=== PATIENT | male | born 1980 | race Two or more races ===

== ENCOUNTER 2019-10-28 09:03 | Emergency (ER) | payer SELFPAY ==
[~2019-10-28] VITALS: Ht 185.4 cm; Wt 77.1 kg
[2019-10-28 09:34] VITALS: BP 143/86
== END 2019-10-28 09:37 | disposition home or self-care (01) ==
LOC: EDBD 09:03 → ER 09:03
DX: F11.10 Opioid abuse, uncomplicated (principal); F19.10 Other psychoactive substance abuse, uncomplicated; F31.9 Bipolar disorder, unspecified; F17.210 Nicotine dependence, cigarettes, uncomplicated; Z59.0 Homelessness

== ENCOUNTER 2023-06-07 03:10 | Emergency (ER) | payer MEDICAID, OTHER ==
[~2023-06-07] VITALS: Ht 172.7 cm; Wt 97.4 kg
[2023-06-07 03:27] VITALS: BP 149/86; PULSE 99; RESP 18; O2SAT 98
== END 2023-06-07 03:38 | disposition left against medical advice (07) ==
LOC: EDUNIT# 03:10 → EDBD 03:10 → ER 03:10
DX: R45.851 Suicidal ideations (principal); Z53.21 Procedure and treatment not carried out due to patient leaving prior to being seen by health care provider

== ENCOUNTER 2023-06-07 04:23 | Emergency (ER) | payer MEDICAID ==
[~2023-06-07] VITALS: Ht 182.9 cm; Wt 79.5 kg
[2023-06-07 06:26] LABS: Basophils # (auto) 0.1 10 ^3/uL (0-0.2); Basophils % (auto) 0.8 % (0.0-2.0); Eosinophils # (auto) 0 10 ^3/uL (0-0.8); Eosinophils % (auto) 0.1 % (0.0-7.0); Hemoglobin 14.6 g/dL (13.5-17.5); Lymphocytes # (auto) 1.1 10 ^3/uL (0.4-5.4); Lymphocytes % (auto) 11.6 % (10.0-50.0); Mean Corpuscular Hemoglobin 32.3 pg (28.0-32.0); Mean Corpuscular Hgb Conc. 33.9 g/dL (32.0-36.0); Mean Corpuscular Volume 95.2 fL (80.0-100.0); Monocytes # (auto) 0.7 10 ^3/uL (0-1.3); Monocytes % (auto) 7.3 % (0.0-12.0); Neutrophils # (auto) 7.7 10 ^3/uL (1.6-8.6); Neutrophils % (auto) 80.2 % (37.0-80.0); Nucleated Red Blood Cells % 0.1 %; Red Blood Cells 4.52 10^6/uL (4.5-5.90); Red Cell Distribution Width 16.5 % (11.8-14.3); White Blood Cell 9.6 10^3/uL (4.4-10.8)
[2023-06-07 06:37] LABS: Chloride 105 mmol/L (98-107); Potassium 4.2 mmol/L (3.5-5.1); Sodium 138 mmol/L (136-145)
[2023-06-07 06:38] LABS: Anion Gap 7 (5-15); Calcium 9.5 mg/dL (8.5-10.1); Carbon Dioxide 26 mmol/L (20-30)
[2023-06-07 06:43] LABS: BUN/Creatinine Ratio 18.1 (10.0-20.0); Blood Urea Nitrogen 15 mg/dL (9-23); Glucose 81 mg/dL (74-106)
[2023-06-07 06:44] LABS: Blood Alcohol < 3.0 mg/dL (<10)
[2023-06-07 06:45] LABS: Acetaminophen < 2.0 UG/ML (10.0-20.0)
[2023-06-07 06:49] LABS: Salicylate < 3.0 mg/dL (2.8-20.0)
[2023-06-07] MEDS: LORazepam 0.5 MG TAB PO ONE (08:21)
[2023-06-07 08:33] LABS: Amphetamine Screen, Urine Pos (NEGATIVE); Barbiturate Scree,Urine Neg (NEGATIVE); Benzodiazephine Screen, Urine Neg (NEGATIVE); Cocaine Screen, Urine Neg (NEGATIVE)
[2023-06-07 08:34] LABS: Cannabinoid Screen, Urine Neg (NEGATIVE); Opiate Scree,Urine Neg (NEGATIVE); Phencyclidine Screen, Urine Neg (NEGATIVE)
[2023-06-07 19:55] VITALS: PULSE 111; RESP 14; O2SAT 98
[2023-06-07] MEDS: risperiDONE 1 MG TAB PO SCH (20:01)
[2023-06-07 20:14] VITALS: BP 149/79; PULSE 111; RESP 14; TEMP 97.8; O2SAT 98
== END 2023-06-07 22:15 | disposition left against medical advice (07) ==
LOC: ER 04:23
DX: R45.851 Suicidal ideations (principal); F14.90 Cocaine use, unspecified, uncomplicated; F15.10 Other stimulant abuse, uncomplicated; F32.9 Major depressive disorder, single episode, unspecified; F17.210 Nicotine dependence, cigarettes, uncomplicated; Z02.79 Encounter for issue of other medical certificate; Z59.00 Homelessness unspecified; Z79.899 Other long term (current) drug therapy
CPT/HCPCS: 36415; 80048; 80307; 80320; 80329; 85025

== ENCOUNTER 2024-02-03 16:21 | Emergency (ER) | payer MEDICAID ==
[~2024-02-03] VITALS: Ht 185.4 cm; Wt 71.5 kg
[2024-02-03 16:31] VITALS: BP 138/55; PULSE 123; RESP 16; O2SAT 99
--- NOTE | 2024-02-03 16:57 | ED.PDOC ---
Psychiatric HPI Comments 43y M who presents to the ED for chief complaint of mental health. Pt states he is here because he needs a refill of his Zoloft, Ativan and Vyvanse Pt states he also needs to talk to hospice social worker. Pt states he needs help but states he doesn't want to say any more cause it might get him into trouble and would like to just talk to hospice social worker and a refill of his medications. Pt has noted history of depression, bipolar disorder and TBI. Pt otherwise denies suicidal or homicidal ideations. Pt denies any auditory or visual hallucinations. Pt is homeless and has history of marijuana and methamphetamine abuse. Pt otherwise denies any other symptoms at this time. Chief Complaint: Mental Health Time Seen by MD: 16:54 Primary Care Provider: NONE Reviewed Notes: Medications, Allergies Information Source: Patient Mode of Arrival: Ambulatory Past Medical History PAST MEDICAL HISTORY: Depression, Schizophrenia Surgical History (Other): TBI Family History Family History: Reviewed,noncontributory to illness Social History Smoker: Cigarettes Alcohol: Denies ETOH Use Drugs: Heroin, Marijuana, Methamphetamine Lives In: Homeless Constitutional: denies: chills, diaphoresis, fatigue, fever, malaise, sweats, weakness, others EENTM: denies: blurred vision, double vision, ear bleeding, ear discharge, ear drainage, ear pain, ear ringing, eye pain, eye redness, hearing loss, mouth pain, mouth swelling, nasal discharge, nose bleeding, nose congestion, nose pain, photophobia, tearing, throat pain, throat swelling, voice changes, others Respiratory: denies: cough, hemoptysis, orthopnea, SOB at rest, shortness of breath, SOB with excertion, stridor, wheezing, others Cardiovascular: denies: chest pain, dizzy spells, diaphoresis, Dyspnea on exertion, edema, irregular heart beat, left arm pain, lightheadedness, palpitations, PND, syncope, others Gastrointestinal: denies: abdomen distended, abdominal pain, blood streaked bowels, constipated, diarrhea, dysphagia, difficulty swallowing, hematemesis, melena, nausea, poor appetite, poor fluid intake, rectal bleeding, rectal pain, vomiting, others Genitourinary: denies: burning, dysuria, flank pain, frequency, hematuria, incontinence, penile discharge, penile sore, pain, testicle pain, testicle swelling, urgency, others Neurological: denies: dizziness, fainting, headache, left sided numbness, left sided weakness, numbness, paresthesia, pre-existing deficit, right sided numbness, right sided weakness, seizure, speech problems, tingling, tremors, weakness, others Musculoskeletal: denies: back pain, gout, joint pain, joint swelling, muscle pain, muscle stiffness, neck pain, others Integumetry: denies: bruises, change in color, change in hair/nails, dryness, laceration, lesions, lumps, rash, wounds, others Allergic/Immunocompromised: denies: Difficulty Healing, Frequent Infections, Hives, Itching, others Hematologic/Lymphatic: denies: anemia, blood clots, easy bleeding, easy bruising, swollen glands, others Endocrine: denies: excessive hunger, excessive sweating, excessive thirst, excessive urination, flushing, intolerance to cold, intolerance to heat, unexplained weight gain, unexplained weight loss, others Psychiatric: reports: bipolar disorder All Other Systems: Reviewed and Negative Physical Exam General Appearance: No Apparent Distress, Normal HEENT: Normal ENT Inspection, PERRL/EOMI Neck: Full Range of Motion, Non-Tender Respiratory: Chest Non-Tender, Lungs Clear, No Accessory Muscle Use, No Respiratory Distress, Normal Breath Sounds Cardiovascular: No Edema, No JVD, No Murmur, No Gallop, Normal Peripheral Pulses, Regular Rate/Rhythm Breast Exam: Deferred Gastrointestinal: No Organomegaly, Non Tender, No Pulsatile Mass, Normal Bowel Sounds, Soft Genitalia: Deferred Pelvic: Deferred Rectal: Deferred Extremities: No calf tenderness, Normal capillary refill, Normal inspection, Normal range of motion, Non-tender, No pedal edema Neurologic: Alert, [employer] II-XII nml as Tested, No Motor Deficits, Normal Affect, Normal Mood, No Sensory Deficits Cerebellar Function: Normal Reflexes: Normal Skin: Dry, Normal Color, Warm Peripheral Pulses: 1+ carotid (R), 1+ carotid (L) Lymphatic: No Adenopathy Was a procedure done? Was a procedure done?: No Psych Differential Dx Psych. Differential Dx: Anxiety, Bipolar Disorder, Depression OD Differential Dx: Anxiety, Bipolar Disorder, Depression Suicidal Differential Dx: Alcohol Abuse, Anxiety, Bipolar Disorder, Depression, Substance Abuse Intoxication Differential Dx: Depression Other Differentail Dx At this time patient is stable and only we will need Zoloft and Ativan for refill He will be given for three days medication until he sees his [facility] psychiatrist X-Ray, Labs, Meds, VS Vital Signs Date Time Temp Pulse Resp B/P (MAP) Pulse Ox O2 Delivery O2 Flow Rate FiO2 02/03/24 16:31 98.2 123 16 138/55 (82) 99 X-Ray, Labs, Meds, VS Comment Course in the emergency department uneventful Patient will have refills for three days of his medication until he sees his [facility] doctor Time of 1ST Reevaluation: 17:30 Reevaluation 1ST: Unchanged Patient Education/Counseling: Diagnosis, Treatment Family Education/Counseling: No Family Present Departure 1 Departure Time of Disposition: 17:00 Impression: Primary Impression: Bipolar disorder current episode depressed Disposition: HOME / SELF CARE / HOMELESS Condition: Fair Additional Instructions: Need to follow up with your psychiatric at [facility] within the next five days e-Prescriptions Lorazepam (Ativan) 0.5 Mg Tab 1 TAB PO BID for 5 Days, #10 TAB Prov: CLARIBEL MONZON MD 02/03/24 Sertraline Hcl (Zoloft) 100 Mg Tab 1 TAB PO DAILY for 5 Days, #5 TAB 5 Refills Prov: CLARIBEL MONZON MD 02/03/24 Discharged With: Self Critical Care Note Critical Care Time?: No Stability Stability form required: No Heart Score Heart Score: Heart Score Response (Comments) Value History N/A 0 EKG N/A 0 Age <45 0 Risk Factors 1 or 2 risk factors 1 Troponin N/A 0 Total 1 I personally scribed for CLARIBEL MONZON MD ([email or web address]) on 02/03/24 at 16:57. Electronically submitted by Sari Diaz ([email or web address]). CLARIBEL MONZON MD Feb 03, 2024 16:57
[2024-02-03] MEDS ORDERED: LORA-655 PO (17:04)
[2024-02-03] MEDS ORDERED: SERT100T PO (17:04)
== END 2024-02-03 17:32 | disposition home or self-care (01) ==
LOC: ER 16:21
DX: F31.9 Bipolar disorder, unspecified (principal); F20.9 Schizophrenia, unspecified; F17.210 Nicotine dependence, cigarettes, uncomplicated; F15.90 Other stimulant use, unspecified, uncomplicated; Z59.00 Homelessness unspecified; Z98.890 Other specified postprocedural states